=== PATIENT | female | born 1980 | race Caucasian/White ===

== ENCOUNTER 2017-09-08 07:24 | Day surgery (SDC) | payer MEDICAID ==
[2017-09-08] MEDS ORDERED: Propofol 10 mg/ml Inj (20 ML) ONE ×2 (08:57→08:58)
[2017-09-08] MEDS ORDERED: Midazolam 2 MG/2 ML VIAL ONE (08:57)
[2017-09-08] MEDS ORDERED: Lactated Ringer's 1,000 ML IV ONE (09:10)
[2017-09-08] MEDS ORDERED: cefOXitin IV 2 gm in Dextrose 2 GM/50 ML BAG IVPB ONE (09:11)
[2017-09-08] MEDS: HYDROmorphone 0.5 mg/0.5 ml ISec IVP PRN ×2 (09:52→10:00)
--- NOTE | 2017-09-08 10:09 | PCM.SURG1 ---
Surgeon's Initial Post Op Note - Surgeon's Notes Surgeon: dr montelongo Manager [employer]: none Type of Anesthesia: General LMA Anesthesia Administered By: dr collin clancy Pre-Operative Diagnosis: 36 yr with AUB/Chronic anemia Operative Findings: see the or reprt Post-Operative Diagnosis: same with polyp/fibroid Operation Performed: myasure d&c, hystercopy Specimen/Specimens Removed: ecc. emc. polyp Estimated Blood Loss: EBL {In ML}: 20 Blood Products Given: N/A Drains Used: No Drains Post-Op Condition: Good Date of Surgery/Procedure: 09/08/17 Time of Surgery/Procedure: 11:00
[2017-09-08 10:25] VITALS: O2SAT 100
[2017-09-08] MEDS ORDERED: DiphenhydrAMINE 50 mg/ml Inj ONE (11:47)
[2017-09-08] MEDS ORDERED: DiphenhydrAMINE 50 mg/ml Inj IVP STA (11:53)
--- NOTE | 2017-09-08 12:06 | OP ---
PROCEDURE DATE: PREOPERATIVE DIAGNOSES: A 36-year-old 4, para 4 with abnormal uterine bleeding, chronic anemia. POSTOPERATIVE DIAGNOSES: A 36-year-old 4, para 4 with abnormal uterine bleeding, chronic anemia, rule out endometrial polyp, rule out fibroid. SURGEON: Felipe Downs MD [employer] SURGEON: None. TYPE OF ANESTHESIA: General anesthesia. ANESTHESIA ADMINISTERED BY: Dr. Gian Anderson. ESTIMATED BLOOD LOSS: 20 mL, deficit 380 mL. PROCEDURE PERFORMED: MyoSure, dilatation and curettage and hysteroscopy. DESCRIPTION OF PROCEDURE: After informed consent was obtained, the patient was brought to the operating room, placed on the table where general anesthesia was administered. She was prepped and draped in normal sterile fashion. Examination found the uterus to be at the vertex, about 8 weeks' size. No pelvic or adnexal mass.. The anterior lip of cervix was grasped with a tenaculum. Gentle dilatation of the cervix was done. Hysteroscope was introduced and found the polyp to be on the anterior wall of the uterus. Pictures were taken and then, the decision was to use the MyoSure. MyoSure was used to take out the polyp or fibroid. It was sent to Pathology. After that, the pictures were taken and sharp curettage of all the wall of the uterus was done and then, ECC was done. Then, the tenaculum was taken out of the anterior lip of the cervix. Patient tolerated the procedure well. Lap and instrument counts were correct x2. She was sent home on Motrin and Keflex. Follow up in Dr. Downs's office in 2 weeks. Felipe Downs MD
[2017-09-08 16:26] VITALS: RESP 16
[2017-09-08 18:12] VITALS: BP 143/65; PULSE 66; TEMP 97.6
--- NOTE | 2017-09-10 20:10 | CARD ---
APPROVED REPORT EKG Measurement Heart [id number] CA 160P5 [id number] <Conclusion> Sinus bradycardia Rightward axis Borderline ECG
== END 2017-09-08 18:07 | disposition home or self-care (01) ==
LOC: C.SDS 07:24
PROVIDERS: ATTEND Obstetrics & Gynecology
DX: D25.9 Leiomyoma of uterus, unspecified (principal); N93.9 Abnormal uterine and vaginal bleeding, unspecified; D64.9 Anemia, unspecified
CPT/HCPCS: 36415; 58561; 84132; 88305; 93005; J0694; J1170; J1200; J2250; J2405; J2704; J3010; J7120